=== PATIENT | female | born 1960 | race Caucasian/White ===

== ENCOUNTER 2018-09-01 14:17 | Emergency (ER) | payer OTHER ==
[~2018-09-01] VITALS: Ht 160 cm; Wt 91.6 kg
[~2018-09-01 14:17] MED LIST: HYCODAN5 MG OR; NO HOME MEDS; TESSALON200 MG OR; TYLENOL500 MG OR
[2018-09-01] MEDS ORDERED: ATORVASTATIN CA20 MG PO (14:33)
[2018-09-01] MEDS ORDERED: METFORMIN500 MG PO (14:33)
[2018-09-01] MEDS ORDERED: JANUVIA100 MG PO (14:33)
[2018-09-01] MEDS ORDERED: ADULT ASPIRIN R81 MG PO (14:34)
[2018-09-01] MEDS ORDERED: HYZAAR1 TA1 PO (14:34)
[2018-09-01] MEDS ORDERED: TORADOL PO (15:53)
[2018-09-01] MEDS ORDERED: MEDDOSEPAK PO (15:53)
[2018-09-01] MEDS ORDERED: FLEXERIL PO (15:53)
[2018-09-01 16:10] VITALS: BP 139/78
== END 2018-09-01 16:10 | disposition home or self-care (01) ==
LOC: ED 14:17
DX: M54.41 Lumbago with sciatica, right side (principal); E11.9 Type 2 diabetes mellitus without complications; I10 Essential (primary) hypertension; E78.5 Hyperlipidemia, unspecified

== ENCOUNTER 2018-11-24 11:02 | Emergency (ER) | payer OTHER ==
[~2018-11-24] VITALS: Ht 160 cm; Wt 90.0 kg
[~2018-11-24 11:02] MED LIST changes: +ADULT ASPIRIN R81 MG PO; +ATORVASTATIN CA20 MG PO; +FLEXERIL PO; +HYZAAR1 TA1 PO; +JANUVIA100 MG PO; +MEDDOSEPAK PO; +METFORMIN500 MG PO; +TORADOL PO
[2018-11-24] MEDS ORDERED: HYDROCHLOROT25 MG PO (11:27)
[2018-11-24] MEDS ORDERED: NAPROXEN250 MG PO (11:29)
[2018-11-24 12:00] LABS: HEMATOCRIT 40.4 % (37.0-47.0); HEMOGLOBIN 12.8 g/dl (12.0-16.0); IMMATURE GRANULOCYTES 0.4 % (0.0-5.0); MEAN CORPUSCULAR HGB 29.2 pG CALC (26.0-32.0); MEAN CORPUSCULAR HGB CONC 31.7 g/L CALC (32.0-36.0); NEUT# 9.89 thou/uL (2.00-7.15); RED BLOOD COUNT 4.39 mill/uL (4.20-5.60); RED CELL DISTRI WIDTH 12.6 % (11.5-15.5)
[2018-11-24 13:04] LABS: ANION GAP 18 (6-22 (CALC)); BUN 19 mg/dL (7-17); BUN/CREATININE RATIO 34 (12-20 (CALC)); CARBON DIOXIDE 25 mmol/l (22-30); CHLORIDE 103 mmol/l (95-108); CREATININE 0.6 mg/dL (0.5-1.0); GFR > 60 ML/MIN (>=60 (CALC)); GFR FOR AFR.AMER. > 60 ML/MIN (>=60 (CALC)); POTASSIUM 4.3 mmol/l (3.5-5.1); SODIUM 141 mmol/l (137-146)
[2018-11-24 14:10] VITALS: BP 124/56
== END 2018-11-24 14:10 ==
LOC: ED 11:02
PROVIDERS: Family Medicine
DX: L03.032 Cellulitis of left toe (principal)

== ENCOUNTER 2018-12-06 11:40 | Outpatient (RCR) | payer OTHER ==
[2018-11-27 13:45] VITALS: BP 114/63
[2018-11-28 15:19] VITALS: BP 111/61
[2018-11-29 15:29] VITALS: BP 115/62
[2018-11-30 15:46] VITALS: BP 122/60
[2018-12-02 13:38] VITALS: BP 124/64
[2018-12-03 10:40] VITALS: BP 118/59
[2018-12-04 10:43] VITALS: BP 133/62
[2018-12-05 12:45] VITALS: BP 117/53
[~2018-12-06] VITALS: Ht 165.1 cm; Wt 81.6 kg
[~2018-12-06 11:40] MED LIST changes: +HYDROCHLOROT25 MG PO; +NAPROXEN250 MG PO
[2018-12-06 12:57] VITALS: BP 136/77
== END 2018-12-06 12:00 | disposition home or self-care (01) ==
LOC: INF 11:40
PROVIDERS: ATTEND Internal Medicine
DX: L03.116 Cellulitis of left lower limb (principal)
CPT/HCPCS: J0878

== ENCOUNTER → 2018-12-09 | Outpatient (REF) | payer OTHER | END | disposition home or self-care (01) | LOC: DI 14:58 | PROVIDERS: ATTEND Surgery | DX: L89.899 Pressure ulcer of other site, unspecified stage (principal) ==

== ENCOUNTER 2018-12-26 14:41 | Outpatient (RCR) | payer OTHER | END 2018-12-26 16:15 | disposition home or self-care (01) | LOC: OPWC 14:41 | PROVIDERS: ATTEND Surgery | DX: E11.621 Type 2 diabetes mellitus with foot ulcer (principal); L97.529 Non-pressure chronic ulcer of other part of left foot with unspecified severity; E11.40 Type 2 diabetes mellitus with diabetic neuropathy, unspecified; E11.65 Type 2 diabetes mellitus with hyperglycemia; E66.9 Obesity, unspecified; I70.203 Unspecified atherosclerosis of native arteries of extremities, bilateral legs; L60.2 Onychogryphosis; R60.9 Edema, unspecified ==

== ENCOUNTER 2019-08-06 15:13 | Emergency (ER) | payer OTHER ==
[~2019-08-06] VITALS: Ht 165.1 cm; Wt 85.0 kg
[2019-08-06] MEDS ORDERED: LOSARTAN POTASS25 MG PO (15:22)
[2019-08-06] MEDS ORDERED: ZPAK PO (16:50)
[2019-08-06] MEDS ORDERED: TESSALON PER100 MG PO (16:50)
[2019-08-06 17:02] VITALS: BP 164/89
== END 2019-08-06 17:06 | disposition home or self-care (01) ==
LOC: ED 15:13
DX: J40 Bronchitis, not specified as acute or chronic (principal); E11.9 Type 2 diabetes mellitus without complications; I10 Essential (primary) hypertension; Z79.84 Long term (current) use of oral hypoglycemic drugs

== ENCOUNTER 2020-02-08 | Emergency (ER) | payer SELFPAY ==
[~2020-02-08] MED LIST changes: +LOSARTAN POTASS25 MG PO; +TESSALON PER100 MG PO; +ZPAK PO
[2020-02-08 13:43] LABS: HEMOGLOBIN 12.1 g/dl (12.0-16.0); IMMATURE GRANULOCYTES 0.4 % (0.0-5.0); MEAN CELL VOLUME 87.3 fL CALC (80.0-100.0); MEAN CORPUSCULAR HGB 28.5 pG CALC (26.0-32.0); MEAN CORPUSCULAR HGB CONC 32.7 g/dL CAL (32.0-36.0); NEUT# 10.99 thou/uL (2.00-7.15); RED BLOOD COUNT 4.24 mill/uL (4.20-5.60); RED CELL DISTRI WIDTH 12.1 % (11.5-15.5)
[2020-02-08 14:00] LABS: ALBUMIN 3.9 g/dL (3.2-5.0); ALKALINE PHOSPHATASE 116 u/l (38-126); ANION GAP 10 (6-22 (CALC)); BILIRUBIN, TOTAL 0.5 mg/dL (0.0-1.4); BUN 14 mg/dL (7-17); BUN/CREATININE RATIO 35 (12-20 (CALC)); CARBON DIOXIDE 28 mmol/l (22-30); CHLORIDE 104 mmol/l (95-108); CREATININE 0.4 mg/dL (0.5-1.0); GFR > 60 ML/MIN (>=60 (CALC)); GFR FOR AFR.AMER. > 60 ML/MIN (>=60 (CALC)); POTASSIUM 4.1 mmol/l (3.5-5.1); SGOT/AST 20 u/l (14-36); SODIUM 138 mmol/l (137-146); TOTAL PROTEIN 6.9 g/dL (6.3-8.2)
[2020-02-08] MEDS ORDERED: AMOX/K CLAV875 M1 PO (15:00)
[2020-02-08] MEDS ORDERED: CLEOCIN300 MG PO (15:01)
== END 2020-02-08 16:20 | disposition home or self-care (01) | DRG 603 ==
DX: L03.213 Periorbital cellulitis (principal); E11.9 Type 2 diabetes mellitus without complications; I10 Essential (primary) hypertension; E78.5 Hyperlipidemia, unspecified; Z79.84 Long term (current) use of oral hypoglycemic drugs

== ENCOUNTER 2021-02-10 | Emergency (ER) | payer SELFPAY ==
[~2021-02-10] MED LIST changes: +AMOX/K CLAV875 M1 PO; +CLEOCIN300 MG PO
[2021-02-10 20:55] LABS: HEMATOCRIT 41.1 % (37.0-47.0); HEMOGLOBIN 13.3 g/dl (12.0-16.0); IMMATURE GRANULOCYTES 0.5 % (0.0-5.0); MEAN CELL VOLUME 86.7 fL CALC (80.0-100.0); MEAN CORPUSCULAR HGB 28.1 pG CALC (26.0-32.0); MEAN CORPUSCULAR HGB CONC 32.4 g/dL CAL (32.0-36.0); NEUT# 11.84 thou/uL (2.00-7.15); RED BLOOD COUNT 4.74 mill/uL (4.20-5.60); RED CELL DISTRI WIDTH 12.6 % (11.5-15.5)
[2021-02-10 21:13] LABS: ALKALINE PHOSPHATASE 118 u/l (38-126); ANION GAP 11 (6-22 (CALC)); BILIRUBIN, TOTAL 0.7 mg/dL (0.0-1.4); BUN 9 mg/dL (8-23); BUN/CREATININE RATIO 22 (12-20 (CALC)); CARBON DIOXIDE 27 mmol/l (22-30); CHLORIDE 97 mmol/l (95-108); CREATININE 0.4 mg/dL (0.5-1.0); GFR > 60 ML/MIN (>=60 (CALC)); GFR FOR AFR.AMER. > 60 ML/MIN (>=60 (CALC)); POTASSIUM 3.3 mmol/l (3.5-5.1); SGOT/AST 19 u/l (9-36); SODIUM 132 mmol/l (137-146); TOTAL PROTEIN 7.1 g/dL (6.3-8.2)
[2021-02-10 22:59] LABS: URINE BLOOD DIPSTICK NEGATIVE (NEGATIVE); URINE COLOR YELLOW; URINE GLUCOSE - DIPSTICK 100 mg/dL (NEGATIVE); URINE KETONE TRACE mg/dL (NEGATIVE); URINE LEUK ESTERASE NEGATIVE (NEGATIVE); URINE PROTEIN - DIPSTICK 100 mg/dL (NEG-TRACE); URINE SPECIFIC GRAVITY >=1.030; URINE UROBILINOGEN - DIPSTICK 0.2 E.U./dL (0.2)
[2021-02-10 23:03] LABS: URINE BILIRUBIN - DIPSTICK SMALL (NEGATIVE)
[2021-02-10 23:04] LABS: URINE NITRITE - DIPSTICK NEGATIVE (Negative)
[2021-02-10 23:23] LABS: URINE BACTERIA FEW hpf; URINE CRYSTALS MANY lpf; URINE SQUAMOUS EPITHELIAL CELL FEW EPI/hpf (0-FEW)
[2021-02-10] MEDS ORDERED: ONDANSETRON4 MG PO (23:35)
== END 2021-02-10 23:50 | disposition home or self-care (01) | DRG 866 ==
PROVIDERS: Emergency Medicine
DX: B34.9 Viral infection, unspecified (principal); E11.9 Type 2 diabetes mellitus without complications; I10 Essential (primary) hypertension; E78.5 Hyperlipidemia, unspecified; Z79.84 Long term (current) use of oral hypoglycemic drugs; Z20.822 Contact with and (suspected) exposure to COVID-19

== ENCOUNTER 2021-03-17 13:26 | Emergency (ER) | payer OTHER ==
[~2021-03-17] VITALS: Ht 165.1 cm; Wt 82.0 kg
[~2021-03-17 13:26] MED LIST changes: +ONDANSETRON4 MG PO
[2021-03-17 15:09] LABS: HEMATOCRIT 36.7 % (37.0-47.0); IMMATURE GRANULOCYTES 0.3 % (0.0-5.0); MEAN CORPUSCULAR HGB 27.7 pG CALC (26.0-32.0); MEAN CORPUSCULAR HGB CONC 30.8 g/dL CAL (32.0-36.0); RED BLOOD COUNT 4.08 mill/uL (4.20-5.60); RED CELL DISTRI WIDTH 12.4 % (11.5-15.5)
[2021-03-17 15:16] LABS: HEMOGLOBIN 11.3 g/dl (12.0-16.0)
[2021-03-17 15:59] LABS: ALBUMIN 3.7 g/dL (3.2-5.0); ALKALINE PHOSPHATASE 102 u/l (38-126); BILIRUBIN, TOTAL 0.8 mg/dL (0.0-1.4); BUN 5 mg/dL (8-23); BUN/CREATININE RATIO 12 (12-20 (CALC)); CHLORIDE 94 mmol/l (95-108); CREATININE 0.4 mg/dL (0.5-1.0); GFR > 60 ML/MIN (>=60 (CALC)); GFR FOR AFR.AMER. > 60 ML/MIN (>=60 (CALC)); POTASSIUM 2.9 mmol/l (3.5-5.1); SGOT/AST 18 u/l (9-36); SODIUM 135 mmol/l (137-146); TOTAL PROTEIN 7.1 g/dL (6.3-8.2)
[2021-03-17 16:03] LABS: ANION GAP 9 (6-22 (CALC)); CARBON DIOXIDE 35 mmol/l (22-30)
[2021-03-17 17:17] LABS: URINE BILIRUBIN - DIPSTICK NEGATIVE (NEGATIVE); URINE BLOOD DIPSTICK NEGATIVE (NEGATIVE); URINE COLOR YELLOW; URINE GLUCOSE - DIPSTICK NEGATIVE (NEGATIVE); URINE KETONE TRACE mg/dL (NEGATIVE); URINE LEUK ESTERASE NEGATIVE (NEGATIVE); URINE PH 6.5 (4.5-8.0); URINE PROTEIN - DIPSTICK 30 mg/dL (NEG-TRACE); URINE SPECIFIC GRAVITY 1.025; URINE UROBILINOGEN - DIPSTICK 0.2 E.U./dL (0.2)
[2021-03-17 17:19] LABS: URINE NITRITE - DIPSTICK NEGATIVE (Negative); URINE RBC 0-2 RBC/hpf (0-5); URINE SQUAMOUS EPITHELIAL CELL FEW EPI/hpf (0-FEW); URINE WBC 0-2 WBC/hpf (0-5)
[2021-03-17 17:45] LABS: MYOGLOBIN 43 ng/mL (0 - 62)
[2021-03-17] MEDS ORDERED: NAPROXEN500 MG PO ×2 (18:52→19:22)
[2021-03-17] MEDS ORDERED: KEFLEX500 MG PO ×2 (18:52→19:22)
[2021-03-17] MEDS ORDERED: CYCLOBENZAPRINE10 MG PO ×2 (18:53→19:22)
[2021-03-17 19:03] VITALS: BP 169/72
== END 2021-03-17 19:18 | disposition home or self-care (01) | DRG 552 ==
LOC: ED 13:26
PROVIDERS: Emergency Medicine
DX: M47.816 Spondylosis without myelopathy or radiculopathy, lumbar region (principal); B34.9 Viral infection, unspecified; E11.9 Type 2 diabetes mellitus without complications; I10 Essential (primary) hypertension; E78.5 Hyperlipidemia, unspecified; Z79.84 Long term (current) use of oral hypoglycemic drugs; Z20.822 Contact with and (suspected) exposure to COVID-19

== ENCOUNTER 2021-03-29 16:45 | Emergency (ER) | payer OTHER ==
[~2021-03-29] VITALS: Ht 160 cm; Wt 82.7 kg
[~2021-03-29 16:45] MED LIST changes: +CYCLOBENZAPRINE10 MG PO; +KEFLEX500 MG PO; +NAPROXEN500 MG PO
[2021-03-29 17:31] LABS: HEMATOCRIT 41.4 % (37.0-47.0); HEMOGLOBIN 12.9 g/dl (12.0-16.0); IMMATURE GRANULOCYTES 0.6 % (0.0-5.0); MEAN CELL VOLUME 88.8 fL CALC (80.0-100.0); MEAN CORPUSCULAR HGB 27.7 pG CALC (26.0-32.0); MEAN CORPUSCULAR HGB CONC 31.2 g/dL CAL (32.0-36.0); NEUT# 8.93 thou/uL (2.00-7.15); RED BLOOD COUNT 4.66 mill/uL (4.20-5.60); RED CELL DISTRI WIDTH 12.4 % (11.5-15.5)
[2021-03-29 17:40] LABS: URINE BILIRUBIN - DIPSTICK NEGATIVE (NEGATIVE); URINE BLOOD DIPSTICK LARGE (NEGATIVE); URINE GLUCOSE - DIPSTICK >=1000 mg/dL (NEGATIVE); URINE KETONE NEGATIVE (NEGATIVE); URINE LEUK ESTERASE NEGATIVE (NEGATIVE); URINE PH 6.5 (4.5-8.0); URINE PROTEIN - DIPSTICK 100 mg/dL (NEG-TRACE); URINE SPECIFIC GRAVITY 1.025; URINE UROBILINOGEN - DIPSTICK 0.2 E.U./dL (0.2)
[2021-03-29 17:42] LABS: URINE COLOR PINK; URINE NITRITE - DIPSTICK NEGATIVE (Negative); URINE RBC >100 RBC/hpf (0-5)
[2021-03-29 17:43] LABS: URINE SQUAMOUS EPITHELIAL CELL RARE EPI/hpf (0-FEW)
[2021-03-29 17:46] LABS: ALBUMIN 4.2 g/dL (3.2-5.0); ALKALINE PHOSPHATASE 135 u/l (38-126); AMYLASE 66 u/l (30-110); ANION GAP 11 (6-22 (CALC)); BILIRUBIN, TOTAL 0.3 mg/dL (0.0-1.4); BUN 15 mg/dL (8-23); BUN/CREATININE RATIO 29 (12-20 (CALC)); CARBON DIOXIDE 30 mmol/l (22-30); CHLORIDE 100 mmol/l (95-108); CREATININE 0.5 mg/dL (0.5-1.0); GFR > 60 ML/MIN (>=60 (CALC)); GFR FOR AFR.AMER. > 60 ML/MIN (>=60 (CALC)); LIPASE 62 u/l (23-300); POTASSIUM 3.4 mmol/l (3.5-5.1); SGOT/AST 26 u/l (9-36); SODIUM 138 mmol/l (137-146); TOTAL PROTEIN 8.1 g/dL (6.3-8.2)
[2021-03-29] MEDS ORDERED: TAMSULOSIN0.4 MG PO (18:33)
[2021-03-29] MEDS ORDERED: HYDROCO/APAP1 TA9 PO (18:33)
[2021-03-29] MEDS ORDERED: ZOFRAN4 MG/TAB PO (18:33)
[2021-03-29 18:49] VITALS: BP 186/85
== END 2021-03-29 19:01 | disposition home or self-care (01) | DRG 694 ==
LOC: ED 16:45
DX: N13.2 Hydronephrosis with renal and ureteral calculous obstruction (principal); I10 Essential (primary) hypertension; E11.9 Type 2 diabetes mellitus without complications; E78.5 Hyperlipidemia, unspecified

== ENCOUNTER 2021-10-27 12:22 | Emergency (ER) | payer SELFPAY ==
[~2021-10-27] VITALS: Ht 160 cm; Wt 71.0 kg
[~2021-10-27 12:22] MED LIST changes: +HYDROCO/APAP1 TA9 PO; +TAMSULOSIN0.4 MG PO; +ZOFRAN4 MG/TAB PO
[2021-10-27] MEDS ORDERED: ZPAK PO (15:21)
[2021-10-27 15:30] VITALS: BP 146/70
== END 2021-10-27 15:30 | disposition home or self-care (01) | DRG 153 ==
LOC: ED 12:22
DX: J06.9 Acute upper respiratory infection, unspecified (principal); I10 Essential (primary) hypertension; E11.9 Type 2 diabetes mellitus without complications; E78.5 Hyperlipidemia, unspecified; Z20.822 Contact with and (suspected) exposure to COVID-19

== ENCOUNTER 2022-10-04 13:45 | Emergency (ER) | payer OTHER ==
[~2022-10-04] VITALS: Ht 160 cm; Wt 75.0 kg
[2022-10-04 13:59] VITALS: BP 118/65
[2022-10-04] MEDS ORDERED: NAPROXEN250 MG PO (14:22)
[2022-10-04] MEDS ORDERED: LIPITOR40 M1 PO (14:23)
[2022-10-04] MEDS ORDERED: METFORMIN500 M2 PO (14:24)
[2022-10-04] MEDS ORDERED: VOLTAREN1%GEL TOP (15:46)
[2022-10-04 15:59] VITALS: BP 118/65
== END 2022-10-04 16:03 | disposition home or self-care (01) | DRG 556 ==
LOC: ED 13:45
DX: M25.532 Pain in left wrist (principal); M25.522 Pain in left elbow; E11.9 Type 2 diabetes mellitus without complications; I10 Essential (primary) hypertension; E78.5 Hyperlipidemia, unspecified; Z79.84 Long term (current) use of oral hypoglycemic drugs; W01.0XXA Fall on same level from slipping, tripping and stumbling without subsequent striking against object, initial encounter